=== PATIENT | female | born 1955 | race Caucasian/White ===

== ENCOUNTER 2016-04-09 16:51 | Emergency (ER) | payer OTHER ==
[2016-04-09 16:56] VITALS: BP 121/74; BMI 36.6
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
== END 2016-04-09 18:42 | disposition home or self-care (01) ==
LOC: ER 16:51
DX: Z04.1 Encounter for examination and observation following transport accident (principal); M62.838 Other muscle spasm; V89.2XXA Person injured in unspecified motor-vehicle accident, traffic, initial encounter
CPT/HCPCS: 71020; 99282